=== PATIENT | male | born 1960 | race Caucasian/White ===

== ENCOUNTER 2017-07-12 10:53 | Emergency (ER) | payer BC, OTHER ==
[~2017-07-12] VITALS: Ht 177.8 cm; Wt 123.0 kg
[2017-07-12 11:00] VITALS: BP 136/84; PULSE 85; RESP 18; TEMP 98; O2SAT 96
--- NOTE | 2017-07-12 11:24 | PD ---
HPI Chief Complaint: GI Complaint Time Seen by Provider: 11:06 Travel History International Travel<30 days: No Contact w/Intl Traveler<30days: No Traveled to known affect area: No History of Present Illness HPI 56-year-old male complains of nausea and constipation. Patient states that she has been nauseous for the past 4 days and no appetite for the past 4 days. Patient states that he has been constipated for the past 4 days also. Patient denies any headache. Patient denies any chest pain or shortness of breath. Patient has history of asthma with some mild dry cough recently. Patient states that he has some mild discomfort on the lower abdomen. Patient denies abdominal pain. Patient denies any dysuria or frequency. Patient denies any back pain. Patient denies any fever chills. Patient states that he had diarrhea for 3 weeks recently. Patient was seen with personal physician and stool was negative for C. difficile. Patient states that the diarrhea resolved completely. Patient has history hypertension, hyperlipidemia and asthma. PFSH Past Medical History Cardiovascular Problems: Yes (HTN) Respiratory: Yes (asthma) Social History Tobacco Use: No Allergies-Medications (Allergen,Severity, Reaction): Coded Allergies: No Known Allergies (Unverified , 07/12/17) Reported Meds & Prescriptions Reported Meds & Active Scripts Active Potassium Chloride ER (Potassium Chloride) 10 Meq Cap 10 Meq PO DAILY Zofran Odt (Ondansetron Odt) 4 Mg Tab 4 Mg SL Q6HR PRN Reported Atorvastatin (Atorvastatin Calcium) 20 Mg Tab 20 Mg PO DAILY Aspirin Low Dose (Aspirin) 81 Mg Chew 81 Mg CHEW DAILY Hydrochlorothiazide 25 Mg Tab 25 Mg PO DAILY Carvedilol 25 Mg Tab 25 Mg PO BID Review of Systems General / Constitutional: No: Fever Eyes: No: Visual changes HENT: No: Headaches Cardiovascular: No: Chest Pain or Discomfort Respiratory: No: Shortness of Breath Gastrointestinal: Positive: Nausea, No: Abdominal Pain Genitourinary: No: Dysuria Musculoskeletal: No: Pain Skin: No Rash Neurologic: No: Weakness Psychiatric: No: Depression Endocrine: No: Polydipsia Hematologic/Lymphatic: No: Easy Bruising Physical Exam Narrative GENERAL: Well-nourished, well-developed patient. SKIN: Focused skin assessment warm/dry. HEAD: Normocephalic. EYES: No scleral icterus. No injection or drainage. NECK: Supple, trachea midline. No JVD or lymphadenopathy. CARDIOVASCULAR: Regular rate and rhythm without murmurs, gallops, or rubs. RESPIRATORY: Breath sounds equal bilaterally. No accessory muscle use. GASTROINTESTINAL: Abdomen soft, non-tender, nondistended. MUSCULOSKELETAL: No cyanosis, or edema. BACK: Nontender without obvious deformity. No CVA tenderness. Neurologic exam normal. Data Data Last Documented VS Vital Signs Date Time Temp Pulse Resp B/P Pulse Ox O2 Delivery O2 Flow Rate FiO2 07/12/17 15:04 68 18 152/70 95 07/12/17 13:57 Room Air 07/12/17 11:00 98.0 Orders Complete Blood Count With Diff (07/12/17 11:12) Comprehensive Metabolic Panel (07/12/17 11:12) Lipase (07/12/17 11:12) Urinalysis - C+S If Indicated (07/12/17 11:12) Abdomen, Flat & Upright (07/12/17 11:12) Iv Access Insert/Monitor (07/12/17 11:12) Ecg Monitoring (07/12/17 11:12) Oximetry (07/12/17 11:12) Sodium Chlor 0.9% 1000 Ml Inj (Ns 1000 M (07/12/17 11:30) Ondansetron Inj (Zofran Inj) (07/12/17 11:30) Potassium Chloride (Kcl) (07/12/17 12:30) Potassium Chlor 20 Meq Premix (Kcl 20 Me (07/12/17 12:30) Ct Abd/Pel W Iv Contrast(Rout) (07/12/17 12:40) Iohexol 350 Inj (Omnipaque 350 Inj) (07/12/17 13:17) Labs Laboratory Tests Test 07/12/17 07/12/17 11:44 14:28 White Blood Count 7.4 TH/MM3 Red Blood Count 4.91 MIL/MM3 Hemoglobin 13.7 GM/DL Hematocrit 40.6 % Mean Corpuscular Volume 82.7 FL Mean Corpuscular Hemoglobin 28.0 PG Mean Corpuscular Hemoglobin 33.8 % Concent Red Cell Distribution Width 12.6 % Platelet Count 258 TH/MM3 Mean Platelet Volume 7.7 FL Neutrophils (%) (Auto) 64.9 % Lymphocytes (%) (Auto) 19.2 % Monocytes (%) (Auto) 15.2 % Eosinophils (%) (Auto) 0.4 % Basophils (%) (Auto) 0.3 % Neutrophils # (Auto) 4.9 TH/MM3 Lymphocytes # (Auto) 1.4 TH/MM3 Monocytes # (Auto) 1.1 TH/MM3 Eosinophils # (Auto) 0.0 TH/MM3 Basophils # (Auto) 0.0 TH/MM3 CBC Comment DIFF FINAL Differential Comment Sodium Level 135 MEQ/L Potassium Level 2.8 MEQ/L Chloride Level 96 MEQ/L Carbon Dioxide Level 30.3 MEQ/L Anion Gap 9 MEQ/L Blood Urea Nitrogen 9 MG/DL Creatinine 0.96 MG/DL Estimat Glomerular Filtration 82 ML/MIN Rate Random Glucose 113 MG/DL Calcium Level 8.9 MG/DL Total Bilirubin 1.5 MG/DL Aspartate Amino Transf 273 U/L (AST/SGOT) Alanine Aminotransferase 349 U/L (ALT/SGPT) Alkaline Phosphatase 366 U/L Total Protein 6.8 GM/DL Albumin 2.9 GM/DL Lipase 285 U/L Urine Collection Type CLEAN CATCH Urine Color YELLOW Urine Turbidity CLEAR Urine pH 6.0 Urine Specific [place] 1.031 Urine Protein NEG mg/dL Urine Glucose (UA) NEG mg/dL Urine Ketones NEG mg/dL Urine Occult Blood NEG Urine Nitrite NEG Urine Bilirubin NEG Urine Leukocyte Esterase NEG Urine WBC 0-2 /hpf Urine Squamous Epithelial 0-5 /hpf Cells Microscopic Urinalysis Comment CULT NOT INDICATED Urine Collection Time 14:28 [facility] Medical Decision Making Medical Screen Exam Complete: Yes Emergency Medical Condition: Yes Interpretation(s) Last Impressions Abdomen X-Ray 07/12/17 1112 Signed Impressions: Service Date/Time: Wednesday, July 12, 2017 11:29 - CONCLUSION: 1. Moderate amount stool in the ascending and proximal transverse colon. Exam is otherwise unremarkable. Ross Dietrich MD 12:37 PM. CBC within normal limit. Potassium 2.8. Total bili 1.5. AST 273. ALT 349. Alkaline phosphatase 366. [address] scan abdomen pelvis negative acute pathology. Differential Diagnosis Differential diagnosis including viral syndrome, gastroenteritis, constipation, ileus, UTI, pyelonephritis. Narrative Course 56-year-old male with persistent nausea, constipation and poor appetite but past 4 days. Normal saline solution 1 L IV bolus. Zofran 4 mg IV. KCl 40 mEq by mouth given. KCl 20 mEq IV given. Patient has elevated liver function enzymes. Patient on statin drug. Advised patient stop statin drug and follow- up with GI specialist and personal physician. Diagnosis Primary Impression: Gastroenteritis Additional Impressions: Transaminitis Hypokalemia Patient Instructions: General Instructions Additional Instructions: Zofran as needed for nausea. Follow-up with personal physician and GI specialist regarding liver function enzyme abnormalities. Return if persistent problem or worse. Stop statin drug. Avoid Tylenol. Med/Other Pt SpecificInfo: Prescription(s) given, Med Stopped Scripts Potassium Chloride ER 10 Meq Cap10 Meq PO DAILY #14 CAP Ref 0 Prov:Mendez Martinez MD 07/12/17 Ondansetron Odt (Zofran Odt)4 Mg Tab4 Mg SL Q6HR PRN (Nausea/Vomiting) #10 TAB Prov:Mendez Martinez MD 07/12/17 Disposition: 01 DISCHARGE HOME Condition: Stable Mendez Martinez MD Jul 12, 2017 11:24
[2017-07-12] MEDS ORDERED: ONDANSETRON HCL 4 MG/2 ML VIAL IV PUSH ONE (11:30)
[2017-07-12] MEDS ORDERED: SODIUM CHLOR 0.9% 1000 ML INJ 1,000 ML IV ONE (11:30)
[2017-07-12 11:51] LABS: AUTOMATED NEUTROPHIL # 4.9 TH/MM3 (1.8-7.7); BASOPHIL % 0.3 % (0.0-2.0); EOSINOPHIL % 0.4 % (0.0-4.0); HEMATOCRIT 40.6 % (39.0-51.0); HEMO FLAGS DIFF FINAL; LYMPH % 19.2 % (9.0-44.0); LYMPHOCYTE # 1.4 TH/MM3 (1.0-4.8); MEAN CELL VOLUME 82.7 FL (80.0-100.0); MEAN CORPUSCULAR HGB CONC 33.8 % (32.0-36.0); MONO % 15.2 % (0.0-8.0); NEUT % 64.9 % (16.0-70.0); PLATELET COUNT 258 TH/MM3 (150-450); RED BLOOD COUNT 4.91 MIL/MM3 (4.50-5.90); RED CELL DISTRIBUTION WIDTH 12.6 % (11.6-17.2); WHITE BLOOD COUNT 7.4 TH/MM3 (4.0-11.0)
[2017-07-12 12:08] VITALS: O2SAT 95
--- NOTE | 2017-07-12 12:10 | RADRPT ---
EXAM DATE/TIME: 07/12/2017 11:29 [facility] COMPARISON: No previous studies available for comparison. INDICATIONS : Constipation for four days and has had nausea. MEDICAL HISTORY : Hiatal hernia. inguinal hernia. SURGICAL HISTORY : Inguinal hernia repair. Hiatal hernia repair ENCOUNTER: Initial ACUITY: 4 - 6 days PAIN SCORE: 0/10 LOCATION: Bilateral Abdomen FINDINGS: There is a moderate amount of stool in the ascending and proximal transverse colon. The bowel gas pat tern is otherwise normal in appearance. No free air is seen. There degenerative changes in the lumbar spine with mild scoliosis. CONCLUSION: 1. Moderate amount stool in the ascending and proximal transverse colon. Exam is otherwise unremarkab le. Ross Dietrich MD on July 12, 2017 at 12:07 Board Certified Radiologist. This report was verified electronically.
[2017-07-12] MEDS ORDERED: CARV25TA PO (12:12)
[2017-07-12] MEDS ORDERED: ASPI81CH37 CHEW (12:12)
[2017-07-12] MEDS ORDERED: HYDR25TA5 PO (12:12)
[2017-07-12] MEDS ORDERED: ATOR20TA15 PO (12:12)
[2017-07-12 12:19] LABS: ALKALINE PHOSPHATASE 366 U/L (45-117); ALT (GPT) 349 U/L (12-78); ANION GAP 9 MEQ/L (5-15); AST (GOT) 273 U/L (15-37); BICARBONATE 30.3 MEQ/L (21.0-32.0); BLOOD UREA NITROGEN 9 MG/DL (7-18); CHLORIDE 96 MEQ/L (98-107); GLOMERULAR FILTRATION RATE 82 ML/MIN (>89); SODIUM (NA) 135 MEQ/L (136-145); TOTAL BILIRUBIN ADULT 1.5 MG/DL (0.2-1.0)
[2017-07-12 12:21] LABS: POTASSIUM 2.8 MEQ/L (3.5-5.1)
[2017-07-12] MEDS ORDERED: POTASSIUM CHLORIDE 20 MEQ CONTROLLED RELEASE TAB PO ONE (12:30)
[2017-07-12] MEDS ORDERED: POTASSIUM CHLOR 20 MEQ PREMIX 100 ML IV ONE (12:30)
[2017-07-12] MEDS ORDERED: IOHEXOL 350 MG/ML 10 ML VIAL (for RAD DIAG) IV ONE (13:17)
[2017-07-12 13:57] VITALS: BP 111/78; PULSE 77; RESP 18; O2SAT 94
--- NOTE | 2017-07-12 14:14 | RADRPT ---
EXAM DATE/TIME: 07/12/2017 13:11 [facility] COMPARISON: No previous studies available for comparison. INDICATIONS : Constipation. IV CONTRAST: 95 cc Omnipaque 350 (iohexol) IV ORAL CONTRAST: No oral contrast ingested. RADIATION DOSE: 24.18 CTDIvol (mGy) MEDICAL HISTORY : Hypertension. SURGICAL HISTORY : Hernia repair. ENCOUNTER: Initial ACUITY: 4 - 6 days PAIN SCALE: 0/10 LOCATION: abdomen TECHNIQUE: Volumetric scanning of the abdomen and pelvis was performed. Using automated exposure control and ad justment of the mA and/or kV according to patient size, radiation dose was kept as low as reasonably achievable to obtain optimal diagnostic quality images. DICOM format image data is available electro nically for review and comparison. FINDINGS: LOWER LUNGS: The visualized lower lungs are clear. LIVER: Homogeneous density without lesion. There is no dilation of the biliary tree. No calcified gallston es. SPLEEN: Normal size without lesion. PANCREAS: Within normal limits. KIDNEYS: Normal in size and shape. There is no mass, stone or hydronephrosis. ADRENAL GLANDS: Within normal limits. VASCULAR: There is no aortic aneurysm. BOWEL/MESENTERY: There are scattered colonic diverticula without inflammatory change. There is a normal amount stool i n the colon. ABDOMINAL WALL: Within normal limits. RETROPERITONEUM: There is no lymphadenopathy. BLADDER: No wall thickening or mass. REPRODUCTIVE: Within normal limits. INGUINAL: There is no lymphadenopathy or hernia. There is a 3 cm low density area in the upper right thigh seen on the last few images obtained which could be related to an opacified distended vein or other shemar h low density mass. It is incompletely seen on the CT of the abdomen and pelvis. MUSCULOSKELETAL: There is a prominent dextroscoliosis of the lower thoracic spine. CONCLUSION: 1. No acute abnormality is seen. 2. Scattered colonic diverticula without inflammation. 3. Prominent dextroscoliosis of the lower thoracic spine with associated deformity. 4. Incompletely seen low density area in the anterior right upper thigh region likely related to unop acified distended vein or other low density mass. Shayne De La Cruz MD on July 12, 2017 at 14:01 Board Certified Radiologist. This report was verified electronically.
[2017-07-12 14:39] LABS: BLOOD, URINE NEG (NEG); GLUCOSE,URINE NEG (NEG); KETONE, URINE NEG (NEG); NITRITE,URINE NEG (NEG)
[2017-07-12] MEDS ORDERED: ZOFR4TAB3 SL (14:42)
[2017-07-12 14:45] LABS: METHOD OF COLLECTION CLEAN CATCH; URINE COLOR YELLOW (YELLW/STRAW)
[2017-07-12 14:46] LABS: COMMENT (UR) CULT NOT INDICATED; CULTURE IF INDICATED CULT NOT INDICATED; SQUAMOUS EPITHELIAL CELL URINE 0-5 /hpf (0-5); WBC, URINE 0-2 /hpf (0-5)
[2017-07-12] MEDS ORDERED: POTA10CA PO (14:47)
[2017-07-12 15:04] VITALS: BP 152/70
== END 2017-07-12 15:04 | disposition home or self-care (01) ==
LOC: PHED 10:53
DX: K52.9 Noninfective gastroenteritis and colitis, unspecified (principal); R74.0 Nonspecific elevation of levels of transaminase and lactic acid dehydrogenase [LDH]; E87.6 Hypokalemia; K59.00 Constipation, unspecified; I10 Essential (primary) hypertension; Z79.82 Long term (current) use of aspirin
CPT/HCPCS: 74020; 74177; 80053; 81001; 83690; 85025; 96374; 99285; J2405; J3480; J7030; Q9967